=== PATIENT | male | born 1995 | race Two or more races ===

== ENCOUNTER 2022-10-01 21:04 | Emergency (ER) | payer BC | END 2022-10-01 21:05 | disposition left against medical advice (07) | LOC: EMS 21:05 | DX: Z53.21 Procedure and treatment not carried out due to patient leaving prior to being seen by health care provider (principal) ==

== ENCOUNTER 2023-11-28 12:19 | Inpatient (IN) | payer BC, SELFPAY ==
[~2023-11-28] VITALS: Ht 182.9 cm; Wt 69.1 kg
[~2023-11-28 12:19] MED LIST: BENZ0.5T52 PO; CLOZ100T61 PO; METH-530 PO; NICO2LOZ PO; PALI3TAB PO
[2023-11-28 12:45] LABS: COVID AG,FIA SOURCE NASAL SWAB
[2023-11-28] MEDS ORDERED: HALOPERIDOL 5 MG TABLET PO PRN (12:45)
[2023-11-28 12:46] LABS: BASOPHILS % (AUTO) 0.8 % (0.0-2.0); EOSINOPHILS % (AUTO) 2.8 % (1.0-6.0); HEMATOCRIT 42.3 % (41-53); HEMOGLOBIN 14.1 g/dL (13.5-17.5); LYMPHOCYTES # (AUTO) 1.8 K/uL (1.0-4.8); LYMPHOCYTES % (AUTO) 23.5 % (22.0-44.0); MEAN CORPUSCULAR HEMOGLOBIN 31.4 pg (26.0-34.0); MEAN CORPUSCULAR HGB CONC 33.4 G/dL (31.0-37.0); MEAN CORPUSCULAR VOLUME 94 fL (80-100); MONOCYTES # (AUTO) 0.6 K/uL (0.1-1.0); NEUTROPHILS % (AUTO) 64.9 % (40.0-70.0); PLATELET COUNT (AUTO) 187 K/uL (150-450); RED CELL DISTRIBUTION WIDTH 12.7 % (11.5-14.5); WHITE BLOOD COUNT (AUTO) 7.7 K/uL (4.5-11.0)
[2023-11-28 12:55] LABS: ANION GAP 6 mmol/L (8-16); CALCIUM, TOTAL 9.5 mg/dL (8.8-10.5); CARBON DIOXIDE 32 mmol/L (22-29); CHLORIDE 98 mmol/L (98-107); CREATININE 1.07 mg/dL (0.60-1.30); GLOMERULAR FILTR. RATE CALC > 60 mL/min (>60); GLUCOSE,RANDOM 114 mg/dL (70-110); POTASSIUM 3.8 mmol/L (3.5-5.1); SODIUM SERUM 136 mmol/L (136-145); UREA NITROGEN, BLOOD 20 mg/dL (7-18)
[2023-11-28 12:58] LABS: ALCOHOL, BLOOD (SERUM) < 3 mg/dL (0-10)
[2023-11-28] MEDS: DiphenhydrAMINE HCL 50 MG/ML VIAL IM ONE (13:07)
[2023-11-28] MEDS: LORazepam 2 MG/ML VIAL IM ONE (13:07)
[2023-11-28] MEDS: HALOPERIDOL LACTATE 5 MG/ML VIAL IM ONE (13:07)
[2023-11-28 13:30] LABS: SARS-COV2 (COVID) ANTIGEN,FIA Negative (Negative)
[2023-11-28 15:21] LABS: ALCOHOL, URINE DRUG SCREEN NEGATIVE (NEGATIVE); AMPHET/METH SCREEN,URINE POSITIVE (NEGATIVE); BARBITURATE SCREEN, URINE NEGATIVE (NEGATIVE); BENZODIAZEPINES SCREEN,URINE NEGATIVE (NEGATIVE); CANNABINOID SCREEN,URINE POSITIVE (NEGATIVE); COCAINE SCREEN,URINE NEGATIVE (NEGATIVE); METHADONE SCREEN, URINE NEGATIVE (NEGATIVE); OPIATE SCREEN,URINE NEGATIVE (NEGATIVE); PHENCYCLIDINE SCREEN,URINE NEGATIVE (NEGATIVE)
[2023-11-28] MEDS ORDERED: PALIPERIDONE PALMITATE 234 MG/1.5 ML SYRINGE IM ONE (23:45)
[2023-11-29 01:06] VITALS: BP 121/74; PULSE 84; RESP 18; TEMP 98
[2023-11-29] MEDS ORDERED: IBUPROFEN 400 MG TABLET PO PRN (07:30)
[2023-11-29] MEDS ORDERED: CloNIDine HCL 0.1 MG TABLET PO PRN (07:30)
[2023-11-29] MEDS ORDERED: PETROLATUM,WHITE 28 GM JELLY TP PRN (07:30)
[2023-11-29] MEDS ORDERED: GuaiFENesin/D-METHORPHAN [SUGAR-FREE] 200-20MG/10 ML SYRUP UDCUP PO PRN (07:30)
[2023-11-29] MEDS ORDERED: MAGNESIUM HYDROXIDE SUSPENSION 30 ML UDCUP PO PRN (07:30)
[2023-11-29] MEDS ORDERED: LOPERAMIDE HCL 2 MG CAPSULE PO PRN (07:30)
[2023-11-29] MEDS ORDERED: ONDANSETRON HCL 4 MG TABLET PO PRN (07:30)
[2023-11-29] MEDS ORDERED: ALBUTEROL SULFATE HFA 90 MCG/PUFF 8 GM INHALER IH PRN (07:30)
[2023-11-29] MEDS ORDERED: DOCUSATE SODIUM 100 MG CAPSULE PO PRN (07:30)
[2023-11-29] MEDS ORDERED: MAG HYDROX/ALUMINUM HYD/SIMETH ES 30 ML SUSPENSION UDCUP PO PRN (07:30)
[2023-11-29 08:00] VITALS: BP 100/69; PULSE 81; RESP 18; TEMP 97.8
[2023-11-29] MEDS: PALIPERIDONE PALMITATE 234 MG/1.5 ML SYRINGE IM ONE (09:04)
[2023-11-29] MEDS: BUPRENORPHINE HCL/NALOXONE HCL 2-0.5 MG SUBLINGUAL TABLET SL SCH (09:07)
[2023-11-29] MEDS: BENZTROPINE MESYLATE 0.5 MG TABLET PO SCH (11:19)
[2023-11-29] MEDS: NICOTINE 14 MG/24 HOUR PATCH TD PRN (16:41)
[2023-11-29] MEDS: LORazepam 2 MG TABLET PO PRN (17:40)
[2023-11-29 20:28] VITALS: BP 110/70; PULSE 79; RESP 18; TEMP 97.6
[2023-11-30 08:12] VITALS: BP 118/62; PULSE 77; RESP 18; TEMP 98.4
[2023-11-30 09:01] LABS: THYROID STIMULATING HORMONE 0.92 uIU/mL (0.36-3.74)
[2023-11-30 09:53] LABS: CHOL/HDL RATIO 2.3 (4.2-7.3)
[2023-11-30 20:31] VITALS: RESP 18
[2023-12-01 09:15] VITALS: BP 122/81; PULSE 104; RESP 18; TEMP 98
[2023-12-01 21:10] VITALS: BP 110/67; PULSE 92; RESP 19; TEMP 98.1
[2023-12-01] MEDS: ACETAMINOPHEN 325 MG TABLET PO PRN (21:14)
[2023-12-01] MEDS: CloZAPine 25 MG TABLET PO SCH (21:14)
[2023-12-01] MEDS: ZOLPIDEM TARTRATE 10 MG TABLET PO PRN (21:14)
[2023-12-01 21:16] VITALS: BP 133/81; PULSE 100; RESP 19; TEMP 98.1
[2023-12-01 22:14] VITALS: RESP 18
[2023-12-02 07:15] LABS: BASOPHILS % (AUTO) 0.6 % (0.0-2.0); EOSINOPHILS % (AUTO) 3.3 % (1.0-6.0); HEMATOCRIT 40.1 % (41-53); HEMOGLOBIN 13.6 g/dL (13.5-17.5); LYMPHOCYTES # (AUTO) 1.9 K/uL (1.0-4.8); LYMPHOCYTES % (AUTO) 29.1 % (22.0-44.0); MEAN CORPUSCULAR HEMOGLOBIN 31.6 pg (26.0-34.0); MEAN CORPUSCULAR HGB CONC 33.8 G/dL (31.0-37.0); MEAN CORPUSCULAR VOLUME 94 fL (80-100); MONOCYTES # (AUTO) 0.7 K/uL (0.1-1.0); MONOCYTES % (AUTO) 10.9 % (2.0-9.0); NEUTROPHILS # (AUTO) 3.6 K/uL (1.8-7.7); NEUTROPHILS % (AUTO) 56.1 % (40.0-70.0); PLATELET COUNT (AUTO) 159 K/uL (150-450); RED BLOOD CELL COUNT(AUTO) 4.29 MIL/uL (4.50-5.90); RED CELL DISTRIBUTION WIDTH 12.1 % (11.5-14.5); WHITE BLOOD COUNT (AUTO) 6.5 K/uL (4.5-11.0)
[2023-12-02] MEDS: METHYLPHENIDATE HCL 10 MG TABLET PO SCH ×2 (08:43→12:11)
[2023-12-02 09:04] VITALS: BP 99/53; PULSE 67; RESP 18; TEMP 98.1
[2023-12-02] MEDS: NICOTINE POLACRILEX 2 MG LOZENGE PO PRN ×2 (10:57→15:23)
[2023-12-02 15:51] VITALS: BP 102/65; PULSE 66; RESP 18
[2023-12-02 16:50] VITALS: RESP 16
[2023-12-02] MEDS: CloZAPine 25 MG TABLET PO SCH (20:43)
[2023-12-02 21:55] VITALS: BP 99/65; PULSE 65; RESP 18; TEMP 97.1
[2023-12-03 08:20] VITALS: BP 109/64; PULSE 49; RESP 18; TEMP 98.1
[2023-12-03 16:27] VITALS: BP 98/69; PULSE 88; RESP 18
[2023-12-03 17:30] VITALS: RESP 16
[2023-12-03 20:26] VITALS: BP 96/60; PULSE 73; RESP 18; TEMP 97.6
[2023-12-03] MEDS: CloZAPine 25 MG TABLET PO SCH (20:45)
[2023-12-04 08:00] VITALS: BP 103/75; PULSE 86; RESP 16; TEMP 98
[2023-12-04] MEDS: CloZAPine 25 MG TABLET PO SCH (20:56)
[2023-12-04 22:05] VITALS: BP 99/61; PULSE 60; RESP 17
[2023-12-05 09:34] VITALS: BP 121/89; PULSE 82; RESP 17; TEMP 97.7
[2023-12-05 11:49] VITALS: BP 121/89; PULSE 82; RESP 18; TEMP 98.7
[2023-12-05 12:49] VITALS: BP 118/69; PULSE 71; RESP 17; TEMP 98
== END 2023-12-05 13:05 | DRG 885 ==
LOC: EMS 12:36 → 3EC 23:34
PROVIDERS: ADMIT Psychiatry & Neurology Child & Adolescent Psychiatry; ATTEND Psychiatry & Neurology Child & Adolescent Psychiatry
DX: F20.9 Schizophrenia, unspecified (principal); F11.20 Opioid dependence, uncomplicated; F15.20 Other stimulant dependence, uncomplicated; F12.20 Cannabis dependence, uncomplicated; Z20.822 Contact with and (suspected) exposure to COVID-19; F10.10 Alcohol abuse, uncomplicated; R73.9 Hyperglycemia, unspecified; F17.200 Nicotine dependence, unspecified, uncomplicated; F90.9 Attention-deficit hyperactivity disorder, unspecified type; Z88.0 Allergy status to penicillin
CPT/HCPCS: 80048; 80061; 80307; 83036; 85025; 87081; 96372; 99285; G0480; J1200; J1630; J2060; Q9967